=== PATIENT | male | born 1955 | race Caucasian/White ===

== ENCOUNTER 2018-03-05 04:45 | Day surgery (SDC) | payer OTHER ==
[~2018-03-05 04:45] MED LIST: ALENDRONATE SOD70 MG PO; COD LIVER OIL1 EACH PO
[2018-03-06] MEDS ORDERED: PERCOCET 5-3251 EACH PO (09:27)
[2018-03-06] MEDS ORDERED: SYNTHROID112 MCG PO (09:27)
== END 2018-03-06 13:00 | disposition home or self-care (01) ==
LOC: CIR.AMB 04:45 → SURG 11:58 → O/R 11:58 → SURG 14:08 → O/R 14:08 → SURG 03-06 11:19 → O/R 03-06 11:19 → CIR.AMB 03-06 13:00
DX: C73 Malignant neoplasm of thyroid gland (principal)